=== PATIENT | female | born 1965 | race Caucasian/White ===

== ENCOUNTER 2020-06-12 12:06 | Emergency (ER) | payer BC, OTHER ==
[~2020-06-12 12:06] MED LIST: AMARYL 2MG TABLE2 MG PO; ASPIRIN EC81 MG PO; ATORVASTATIN CA20 MG PO; EFFIENT10 MG PO; ERYTHROMYCIN O3.5 GM OU; FARXIGA10 MG PO; FLEXERIL 10 MG10 MG PO; GLIMEPIRIDE4 MG PO; GLUCOPHAGE XR500 MG PO; IBUPROFEN600 MG PO; IBUPROFEN800 MG PO; IMDUR ER TAB 3030 MG PO; INVOKANA300 MG PO; JANUVIA100 MG PO; JARDIANCE PO; KEFLEX CAP 500500 MG PO; LOPRESSOR 25 MG25 MG PO; MOBIC7.5 MG PO; NAPROSYN500 MG PO; NORCO 5-325 TA1 EACH PO; ONDANSETRON ODT4 MG PO; OZEMPIC1 MG/0.75 SQ; PANTOPRAZOLE SO40 MG PO; PROTONIX40 MG PO; STOOL SOFTENER1 EACH PO; TIZANIDINE HCL2 MG PO; ULTRAM50 MG PO
[2020-06-12] MEDS ORDERED: TIZANIDINE HCL2 M1 PO (16:26)
== END 2020-06-12 16:39 | disposition home or self-care (01) ==
LOC: ER1 12:06
DX: S09.90XA Unspecified injury of head, initial encounter (principal); M25.512 Pain in left shoulder; M25.552 Pain in left hip; I25.2 Old myocardial infarction; Z79.899 Other long term (current) drug therapy; W19.XXXA Unspecified fall, initial encounter; Y92.22 Religious institution as the place of occurrence of the external cause
CPT/HCPCS: 70450; 72131; 72192; 73030; 99284

== ENCOUNTER → 2020-06-29 | Outpatient (CLI) | payer BC, OTHER ==
[~2020-06-29] MED LIST changes: +TIZANIDINE HCL2 M1 PO
== END ==
LOC: NM 09:14
DX: R06.02 Shortness of breath (principal)
CPT/HCPCS: 78452; A9502

== ENCOUNTER 2020-07-02 18:44 | Emergency (ER) | payer BC, OTHER | END 2020-07-02 20:55 | disposition home or self-care (01) | LOC: ER1 18:44 | DX: S46.912A Strain of unspecified muscle, fascia and tendon at shoulder and upper arm level, left arm, initial encounter (principal); S70.02XA Contusion of left hip, initial encounter; S80.212A Abrasion, left knee, initial encounter; E11.9 Type 2 diabetes mellitus without complications; I10 Essential (primary) hypertension; K21.9 Gastro-esophageal reflux disease without esophagitis; E78.5 Hyperlipidemia, unspecified; Z23 Encounter for immunization; Z79.899 Other long term (current) drug therapy; W01.0XXA Fall on same level from slipping, tripping and stumbling without subsequent striking against object, initial encounter | CPT/HCPCS: 73030; 73502; 73564; 90471; 90715; 99283 ==

== ENCOUNTER → 2020-10-26 | Outpatient (CLI) | payer BC, OTHER | LOC: CT 12:08 | DX: M25.512 Pain in left shoulder (principal); S46.912A Strain of unspecified muscle, fascia and tendon at shoulder and upper arm level, left arm, initial encounter | CPT/HCPCS: 73221 ==

== ENCOUNTER → 2021-02-24 | Outpatient (CLI) | payer BC | LOC: MAMO 07:58 | DX: Z12.31 Encounter for screening mammogram for malignant neoplasm of breast (principal) | CPT/HCPCS: 77063; 77067 ==

== ENCOUNTER → 2021-07-13 | Outpatient (CLI) | payer BC | LOC: RAD 07:01 | DX: R13.10 Dysphagia, unspecified (principal); K44.9 Diaphragmatic hernia without obstruction or gangrene | CPT/HCPCS: 74221 ==

== ENCOUNTER → 2021-07-28 | Outpatient (CLI) | payer BC ==
[~2021-07-28] MED LIST changes: +ARTHRITIS PAIN150 GM TP; +ATORVASTATIN CA80 MG PO
== END ==
LOC: ECHO 07:24 → HEART 5 08-09 14:00
DX: Z01.818 Encounter for other preprocedural examination (principal); I25.10 Atherosclerotic heart disease of native coronary artery without angina pectoris; Z95.1 Presence of aortocoronary bypass graft; I51.89 Other ill-defined heart diseases
CPT/HCPCS: ECHO; 71045; 93306

== ENCOUNTER → 2021-08-14 | Day surgery (SDC) | payer BC | END | disposition home or self-care (01) | LOC: OR 06:26 | DX: K29.50 Unspecified chronic gastritis without bleeding (principal); K31.9 Disease of stomach and duodenum, unspecified; K21.00 Gastro-esophageal reflux disease with esophagitis, without bleeding; K29.80 Duodenitis without bleeding; I25.2 Old myocardial infarction; E11.42 Type 2 diabetes mellitus with diabetic polyneuropathy; Z79.82 Long term (current) use of aspirin; Z79.84 Long term (current) use of oral hypoglycemic drugs; Z20.822 Contact with and (suspected) exposure to COVID-19; Z95.5 Presence of coronary angioplasty implant and graft | CPT/HCPCS: 82962; J2704; J7120; U0002 ==

== ENCOUNTER → 2021-12-28 | Outpatient (CLI) | payer BC ==
[2021-12-28 10:14] LABS: HEMOGLOBIN 14.6 gm/dl (12.3-15.3); RED BLOOD COUNT 5.28 M/UL (4.00-5.10); WHITE BLOOD COUNT 4.5 K/UL (4.5-11.0)
[2021-12-28 10:57] LABS: BUN/CREATININE RATIO 20 (0-10)
[2021-12-29 07:11] LABS: ALPHA-1-ANTITRYPSIN, SERUM 154 mg/dL (101-187)
[2021-12-29 08:14] LABS: HBSAG SCREEN Negative (Negative); HCV ANTIBODY <0.1 (0.0-0.9); HEP B CORE AB, TOT Negative (Negative)
[2021-12-29 09:14] LABS: CREATININE, URINE 47.6 mg/dL (Not Estab.)
[2021-12-29 12:14] LABS: HEP A AB, IGM Negative (Negative)
[2021-12-29 16:11] LABS: MITOCHONDRIAL (M2) ANTIBODY <20.0 Units (0.0-20.0)
[2022-01-02 00:10] LABS: ALT (SGPT) P5P 49 IU/L (0-40); APOLIPOPROTEIN A-1 121 mg/dL (116-209); AST (SGOT) P5P 42 IU/L (0-40); BILIRUBIN, TOTAL 0.5 mg/dL (0.0-1.2); CHOLESTEROL, TOTAL 183 mg/dL (100-199); FIBROSIS SCORE 0.48 (0.00-0.21); FIBROSIS STAGE F1-F2 (.); GGT 46 IU/L (0-60); GLUCOSE, SERUM 197 mg/dL (65-99); HAPTOGLOBIN 96 mg/dL (33-346); HEIGHT: 66 in (.); NASH SCORE 0.75 (0.25); TRIGLYCERIDES 160 mg/dL (0-149); WEIGHT: 174 LBS (.)
== END ==
LOC: US 08:19 → LAB 08:19
PROVIDERS: Physician Assistant
DX: E04.2 Nontoxic multinodular goiter (principal); K76.0 Fatty (change of) liver, not elsewhere classified; E11.9 Type 2 diabetes mellitus without complications
CPT/HCPCS: 36415; 76536; 76705; 80053; 80061; 82043; 82103; 82172; 82247; 82465; 82570; 82728; 82947; 82977; 83010; 83036; 83540; 83550; 83883; 84439; 84443; 84450; 84460; 84478; 85025; 85610; 86704; 86706; 86708; 86709; 86803; 87340

== ENCOUNTER → 2022-01-19 | Outpatient (CLI) | payer BC | LOC: MRI 09:14 | DX: E04.2 Nontoxic multinodular goiter (principal); K76.0 Fatty (change of) liver, not elsewhere classified | CPT/HCPCS: 73221 ==